=== PATIENT | male | born 1975 | race Caucasian/White ===

== ENCOUNTER 2021-02-11 17:06 | Emergency (ER) | payer SELFPAY ==
[~2021-02-11] VITALS: Ht 177.8 cm; Wt 101.7 kg
[2021-02-11] MEDS ORDERED: INDOMETHACIN25 MG PO (19:43)
--- NOTE | 2021-02-12 04:34 | EKG ---
[facility] [address] [facility] [place] [address] Signed Normal sinus rhythm Minimal voltage criteria for LVH Borderline ECG No previous ECGs available Confirmed by FERNANDA CARROLL MD ([id number] on 02/12/2021 4:34:25 AM Electronically Signed By: FERNANDA CARROLL MD 02/12/21 0434 PATIENT NAME: CANDELARIO BARTON TAD Electrocardiogram DATE OF : 79 PHYSICIAN: FERNANDA CARROLL MD REPORT #: [id number] REPORT IS CONFIDENTIAL AND NOT TO BE RELEASED WITHOUT AUTHORIZATION
== END 2021-02-11 20:56 | disposition home or self-care (01) ==
LOC: ED 17:06
DX: G44.84 Primary exertional headache (principal)
CPT/HCPCS: 70450; 70496; 70498; 80048; 85025; 93005; 93010; 99284-25; Q9967